=== PATIENT | female | born 1965 | race Hispanic/Latino ===

== ENCOUNTER 2018-02-03 12:58 | Emergency (ER) | payer OTHER, SELFPAY | END 2018-02-03 14:12 | disposition home or self-care (01) | LOC: SCSER 12:58 | DX: G89.29 Other chronic pain (principal); M54.2 Cervicalgia; K05.20 Aggressive periodontitis, unspecified; G43.909 Migraine, unspecified, not intractable, without status migrainosus | CPT/HCPCS: 99283 ==

== ENCOUNTER 2021-07-22 14:26 | Outpatient (CLI) | payer BC | END 2021-07-22 14:27 | disposition home or self-care (01) | LOC: BICMAMMO 14:26 | PROVIDERS: ATTEND Internal Medicine | DX: Z12.31 Encounter for screening mammogram for malignant neoplasm of breast (principal) | CPT/HCPCS: 77063; 77067 ==